=== PATIENT | male | born 1955 | race Caucasian/White ===

== ENCOUNTER 2018-02-20 19:53 | Emergency (ER) | payer SELFPAY ==
--- NOTE | 2018-02-20 20:19 | ED PDOC ---
Arrival/HPI <Mark Daniels - Last Filed: 02/20/18 21:04> - General Historian: Patient, Family <Jose Montemayor - Last Filed: 02/20/18 21:26> - General Chief Complaint: High Blood Pressure Time Seen by Provider: 02/20/18 20:18 - History of Present Illness Narrative History of Present Illness (Text): 02/20/18 20:20 62yo male with PMHx of hypertension bib the daughter for elevated BP. The daughter states patient lost his antihypertensive medication for days now and has not taken his medication. States she checked it at home this evening and it was 165/100, so she brought him to ED for medication. Patient otherwise denies chest pain, SOB, headache, focal weakness, dizziness, nausea, slurred speech, visual changes, any other complaint. (Jose Montemayor A) Past Medical History - Provider Review Nursing Documentation Reviewed: Yes - Infectious Disease Hx of Infectious Diseases: None - Cardiac Hx Cardiac Disorders: Yes Hx Hypertension: Yes Other/Comment: 1 Stent - Pulmonary Hx Respiratory Disorders: No - Neurological Hx Neurological Disorder: No - HEENT Hx HEENT Disorder: No - Renal Hx Renal Disorder: No - Endocrine/Metabolic Hx Endocrine Disorders: No - Hematological/Oncological Hx Blood Disorders: No - Integumentary Hx Dermatological Disorder: No - Musculoskeletal/Rheumatological Hx Musculoskeletal Disorders: No - Gastrointestinal Hx Gastrointestinal Disorders: No - Genitourinary/Gynecological Hx Genitourinary Disorders: No - Psychiatric Hx Psychophysiologic Disorder: No Hx Substance Use: No - Surgical History Other/Comment: 1 stent placement <Jose Montemayor - Last Filed: 02/20/18 21:26> Family/Social History - Physician Review Nursing Documentation Reviewed: Yes Family/Social History: Unknown Family HX Smoking Status: Never Smoked Hx Alcohol Use: No Hx Substance Use: No <Jose Montemayor A - Last Filed: 02/20/18 21:26> Allergies/Home Meds <Mark Daniels - Last Filed: 02/20/18 21:04> <Jose Montemayor A - Last Filed: 02/20/18 21:26> Allergies/Adverse Reactions: Allergies No Known Allergies Allergy (Verified 02/20/18 19:56) Review of Systems - Physician Review All systems were reviewed & negative as marked: Yes - Review of Systems Constitutional: Normal, Other (Elevated BP\) Eyes: Normal ENT: Normal Respiratory: Normal Cardiovascular: Normal Gastrointestinal: Normal Genitourinary Male: Normal Musculoskeletal: Normal Skin: Normal Neurological: Normal Endocrine: Normal Hemo/Lymphatic: Normal Psychiatric: Normal <Jose Montemayor A - Last Filed: 02/20/18 21:26> Physical Exam Vital Signs Reviewed: Yes Temperature: Afebrile Blood Pressure: Normal Pulse: Regular Respiratory Rate: Normal Appearance: Positive for: Well-Appearing, Non-Toxic, Comfortable Pain Distress: None Mental Status: Positive for: Alert and Oriented X 3 - Systems Exam Head: Present: Atraumatic, Normocephalic Pupils: Present: PERRL Extroacular Muscles: Present: EOMI Conjunctiva: Present: Normal Mouth: Present: Moist Mucous Membranes Neck: Present: Normal Range of Motion Respiratory/Chest: Present: Clear to Auscultation, Good Air Exchange. No: Respiratory Distress, Accessory Muscle Use Cardiovascular: Present: Regular Rate and Rhythm, Normal S1, S2. No: Murmurs Abdomen: Present: Normal Bowel Sounds. No: Tenderness, Distention, Peritoneal Signs Back: Present: Normal Inspection Upper Extremity: Present: Normal Inspection. No: Cyanosis, Edema Lower Extremity: Present: Normal Inspection. No: Edema Neurological: Present: GCS=15, CN II-XII Intact, Speech Normal Skin: Present: Warm, Dry, Normal Color. No: Rashes Psychiatric: Present: Alert, Oriented x 3, Normal Insight, Normal Concentration <Jose Montemayor A - Last Filed: 02/20/18 21:26> Vital Signs Temp Pulse Resp BP Pulse Ox 02/20/18 20:24 71 173/77 H 02/20/18 19:57 98.1 F 71 18 173/77 H 99 Medical Decision Making <Mark Daniels - Last Filed: 02/20/18 21:04> <Jose Montemayor - Last Filed: 02/20/18 21:26> ED Course and Treatment: 02/20/18 21:24 PT present for stated history. he denies any focal somatic complaint in ED. He was neurologically intact in ED. His BP was 173/77 in ED. The daughter is not sure of the name of the antihypertensive medication that he lost. he was given Amlodipine 5mg and strongly advised to f/u with a PMD/clinic. Advised TRT ED for any new or worsening symptoms. (Jose Montemayor) - Medication Orders Current Medication Orders: Discontinued Medications Amlodipine Besylate (Norvasc) 5 mg PO STAT STA Stop: 02/20/18 20:19 Last Admin: 02/20/18 20:24 Dose: 5 mg MAR Pulse and Blood Pressure Document 02/20/18 20:24 DIONICIO (Rec: 02/20/18 20:26 DIONICIO [id number]) Pulse Pulse Rate (60-90) 71 Blood Pressure Blood Pressure (100/60-150/90) 173/77 - PA / [employer] INTERN / Resident Statement / has reviewed & agrees with the documentation as recorded. <Mark Daniels - Last Filed: 02/20/18 21:04> Disposition/Present on Arrival <Mark Daniels - Last Filed: 02/20/18 21:04> - Present on Arrival Any Indicators Present on Arrival: No History of DVT/PE: No History of Uncontrolled Diabetes: No Urinary Catheter: No History of Decub. Ulcer: No History Surgical Site Infection Following: None - Disposition Have Diagnosis and Disposition been Completed?: Yes Disposition Time: 20:25 Patient Plan: Discharge <Jose Montemayor - Last Filed: 02/20/18 21:26> - Disposition Diagnosis: Hypertension Disposition: HOME/ ROUTINE Condition: STABLE Discharge Instructions (ExitCare): High Blood Pressure in Adults Additional Instructions: Follow up with the clinic Return to ED for any new or worsening symptoms Prescriptions: amLODIPine [Norvasc] 5 mg PO DAILY #10 tab Referrals: [facility] at [facility] [place] [Outside] - Follow up with primary Forms: [employer] (Setswana)
[2018-02-20 20:30] VITALS: BP 173/77; PULSE 71; RESP 18; TEMP 98.1; O2SAT 99; BMI 33.1
== END 2018-02-20 20:38 | disposition home or self-care (01) ==
LOC: ED 19:53
DX: I10 Essential (primary) hypertension (principal); Z95.5 Presence of coronary angioplasty implant and graft